=== PATIENT | male | born 1955 | race Caucasian/White ===

== ENCOUNTER → 2016-09-05 | Outpatient (CLI) | payer BC ==
[2016-09-05 13:31] LABS: CHOLESTEROL/HDL RATIO 3.5; PROSTATE SPECIFIC ANTIGEN 0.975 ng/ml (0.000-4.000)
== END | disposition home or self-care (01) ==
LOC: C.LABMFLN 09:25
PROVIDERS: ATTEND Family Medicine
DX: Z13.220 Encounter for screening for lipoid disorders (principal); Z12.5 Encounter for screening for malignant neoplasm of prostate; Z13.1 Encounter for screening for diabetes mellitus

== ENCOUNTER → 2016-12-14 | Outpatient (CLI) | payer BC ==
[2016-12-14 13:23] LABS: BLOOD UREA NITROGEN 21 mg/dl (7-18)
== END | disposition home or self-care (01) ==
LOC: C.LABMFLN 07:48
PROVIDERS: ATTEND Physician Assistant
DX: H90.A21 Sensorineural hearing loss, unilateral, right ear, with restricted hearing on the contralateral side (principal)

== ENCOUNTER → 2016-12-16 | Outpatient (CLI) | payer BC ==
[~2016-12-16] MED LIST: GADAVIST IV PRN
--- NOTE | 2016-12-16 16:11 | DIAGNOSTIC IMAGING REPORT ---
BRAIN COMBO FOR IAC HISTORY:61 [id number] Left asymmetrical sensorineural hearing loss. Tinnitus in the right ear for approximately 3 weeks. No headaches or other complaints. History of mastoidectomy at age 5. COMPARISON: None available. TECHNIQUE: Multiplanar multisequence MRI of the brain and internal auditory canals was obtained both with and without the use of 8.5 mL Gadavist IV contrast. FINDINGS: There is no restricted diffusion to suggest acute ischemia. The midline structures including the corpus callosum, brainstem, optic chiasm, pituitary gland, pineal gland and cerebellar tonsils appear unremarkable the sagittal T1 series. There is no acute intracranial hemorrhage, midline shift, abnormal extra-axial collections, hydrocephalus or mass. There is mild cerebral atrophy. The flow voids at the level of the skull base appear normal. No abnormal enhancement is identified. Thin section 3-D images through the internal auditory canals demonstrates normal course of the 7th and 8th cranial nerves bilaterally. No cerebellar pontine angle mass. There is only minimal mucosal thickening of the ethmoid and maxillary sinuses. Mastoid air cells appear clear. Orbits are within normal limits. IMPRESSION: 1. No acute intracranial abnormality. 2. No abnormal enhancement. The courses of the 7th and 8th cranial nerves appear normal. No cerebellar pontine angle mass. The above report was generated using voice recognition software. It may contain grammatical, syntax or spelling errors. Electronically signed by: Remy Herron 12/16/2016 4:10 PM Dictated Date/Time: 12/16/2016 3:57 PM
== END | disposition home or self-care (01) ==
LOC: C.MRI 14:28
PROVIDERS: ATTEND Physician Assistant
DX: H93.11 Tinnitus, right ear (principal); H90.42 Sensorineural hearing loss, unilateral, left ear, with unrestricted hearing on the contralateral side; H90.A21 Sensorineural hearing loss, unilateral, right ear, with restricted hearing on the contralateral side

== ENCOUNTER → 2017-01-10 | Outpatient (CLI) | payer BC ==
[2017-01-10 13:40] LABS: THYROID STIMULATING HORMONE 0.619 uIu/ml (0.300-4.500)
[2017-01-10 13:47] LABS: LYME DISEASE AB IGG POS (NEG); LYME DISEASE AB IGM EQUIVOCAL (NEG)
[2017-01-17 12:05] LABS: 18KDIGG BAND REACTIVE (NONREACTIVE); 23KDIGG BAND REACTIVE (NONREACTIVE); 23KDIGM BAND REACTIVE (NONREACTIVE); 28KDIGG BAND REACTIVE (NONREACTIVE); 30KDIGG BAND REACTIVE (NONREACTIVE); 39KDIGG BAND REACTIVE (NONREACTIVE); 39KDIGM BAND NONREACTIVE (NONREACTIVE); 41KDIGG BAND REACTIVE (NONREACTIVE); 41KDIGM BAND REACTIVE (NONREACTIVE); 45KDIGG BAND REACTIVE (NONREACTIVE); 58KDIGG BAND REACTIVE (NONREACTIVE); 66KDIGG BAND REACTIVE (NONREACTIVE); 93KDIGG BAND REACTIVE (NONREACTIVE)
== END | disposition home or self-care (01) ==
LOC: C.LABMFLN 11:20
PROVIDERS: ATTEND Physician Assistant
DX: H93.11 Tinnitus, right ear (principal); H90.42 Sensorineural hearing loss, unilateral, left ear, with unrestricted hearing on the contralateral side; H90.A21 Sensorineural hearing loss, unilateral, right ear, with restricted hearing on the contralateral side

== ENCOUNTER → 2017-09-06 | Outpatient (CLI) | payer BC ==
[2017-09-06 12:36] LABS: BASO % 0.3 %; BASO ABS # 0.02 K/uL (0-0.2); EOS % 3.8 %; EOS ABS # 0.22 K/uL (0-0.5); HEMATOCRIT 43.3 % (42-52); HEMOGLOBIN 14.9 g/dL (14.0-18.0); LYMPH % 34.1 %; LYMPH ABS # 1.98 K/uL (1.2-3.4); MEAN CELL VOLUME 87.5 fL (80-100); MEAN CORPUSCULAR HEMOGLOBIN 30.1 pg (25-34); MEAN CORPUSCULAR HGB CONC 34.4 g/dl (32-36); MEAN PLATELET VOLUME 10.1 fL (7.4-10.4); MONO % 12.9 %; MONO ABS # 0.75 K/uL (0.11-0.59); NEUT % 48.9 %; NEUT ABS # 2.84 K/uL (1.4-6.5); PLATELET COUNT 338 K/uL (130-400); RED CELL DISTRIBUTION WIDTH CV 14.1 % (11.5-14.5); RED CELL DISTRIBUTION WIDTH SD 45.1 fL (36.4-46.3); WHITE BLOOD COUNT 5.81 K/uL (4.8-10.8)
[2017-09-06 13:08] LABS: ALBUMIN 3.6 gm/dl (3.4-5.0); ALT/SGPT 34 U/L (12-78); BLOOD UREA NITROGEN 22 mg/dl (7-18); CARBON DIOXIDE 25 mmol/L (21-32); CHOLESTEROL 235 mg/dl (0-200); CREATININE 1.16 mg/dl (0.60-1.40); GLUCOSE 97 mg/dl (70-99); POTASSIUM 4.1 mmol/L (3.5-5.1); SODIUM 137 mmol/L (136-145)
[2017-09-06 13:12] LABS: ALKALINE PHOSPHATASE 59 U/L (45-117); AST/SGOT 27 U/L (15-37); LDL CHOLESTEROL CALCULATED 162 mg/dl; TOTAL PROTEIN 7.2 gm/dl (6.4-8.2)
== END | disposition home or self-care (01) ==
LOC: C.LABMFLN 07:59
PROVIDERS: ATTEND Family Medicine
DX: Z00.00 Encounter for general adult medical examination without abnormal findings (principal); Z13.220 Encounter for screening for lipoid disorders; Z12.5 Encounter for screening for malignant neoplasm of prostate; Z13.1 Encounter for screening for diabetes mellitus; H81.09 Meniere's disease, unspecified ear; H91.91 Unspecified hearing loss, right ear